=== PATIENT | male | born 1950 | race Asian ===

== ENCOUNTER 2023-11-27 06:24 | Day surgery (SDC) | payer OTHER, SELFPAY ==
[2023-11-27] VITALS (14 sets, daily range): BP systolic 111–134; BP diastolic 65–83; BMI 24.9
[2023-11-27] MEDS: NSS 230 ML IV (06:51)
[2023-11-27] MEDS: ASPIRIN 325 MG PO (07:08)
--- NOTE | 2023-11-27 08:00 | ITS.CL.CATH ---
[facility] - Catheterization
Cardiac Catheterization
Procedure Report:
CARDIAC CATHETERIZATION REPORT
Date of Procedure: 11/27/2023
Referring: Simon Wolff MD
Indication: Exertional angina with abnormal coronary CT calcium score
HEMODYNAMIC DATA
AO: 123/68
LV: 123/16
LEFT VENTRICULOGRAPHY: Normal segmental wall motion-an ejection fraction could not be calculated due to ventricular ectopy but is clearly within the normal range
CORONARY ANGIOGRAPHY
Dominance: Right
Left Main: Normal
LAD: Mild calcification with 20% proximal stenosis and otherwise trivial luminal irregularities. 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
Circumflex: Normal
RCA: Large dominant vessel with trivial luminal irregularities. The PDA extends to supply the LV apex
Closure Device: None-the procedure was performed via the right radial artery. The Pierce's test was normal prior to the procedure.
Radiation (mGy): 181
DAP (cm2.Gy): 16.1
Fluoroscopy time: 1.5 minutes
CONCLUSIONS
1: Normal left ventricular function
2: Trivial CAD as described
3. Recommend continued antiplatelet monotherapy with statin dosing to achieve LDL less than 70
Copy to: Simon Wolff MD, Stevie Etienne MD ([place], [place])
Guanako Tello MD, [facility], [facility]
[2023-11-27] MEDS: NSS 1000 IV (08:20)
== END 2023-11-27 10:54 | disposition home or self-care (01) ==
LOC: CATH 06:24
PROVIDERS: ATTENDING PHYSICIAN Internal Medicine Cardiovascular Disease; FAMILY PHYSICIAN Internal Medicine
DX: I25.10 Atherosclerotic heart disease of native coronary artery without angina pectoris (principal); R07.9 Chest pain, unspecified; I10 Essential (primary) hypertension; E78.5 Hyperlipidemia, unspecified; K21.9 Gastro-esophageal reflux disease without esophagitis; Z87.891 Personal history of nicotine dependence; Z79.02 Long term (current) use of antithrombotics/antiplatelets
CPT/HCPCS: 93458; C1894; Q9967